=== PATIENT | male | born 1960 | race Caucasian/White ===

== ENCOUNTER → 2019-12-27 | Outpatient (CLI) | payer BC ==
[~2019-12-27] MED LIST: CYCL-707; GABA-843; LISI10TA4 PO; OMEP-221; PRAV40TA2
== END ==
LOC: M LABSMTC 08:19
PROVIDERS: ATTEND Anesthesiology
DX: Z01.812 Encounter for preprocedural laboratory examination (principal); Z20.828 Contact with and (suspected) exposure to other viral communicable diseases

== ENCOUNTER 2020-01-01 08:45 | Day surgery (SDC) | payer BC ==
[~2020-01-01] VITALS: Ht 170.2 cm; Wt 94.8 kg
[~2020-01-01 08:45] MED LIST changes: +NS 1,000 ML IV ONE; +propofoL 200 MG/20 ML VIAL As Ordered ONE
[2020-01-01] MEDS ORDERED: propofoL 200 MG/20 ML VIAL As Ordered ONE (10:17)
[2020-01-01] MEDS ORDERED: fentaNYL 100 MCG/2 ML INJECTION (J3010) As Ordered ONE (10:21)
[2020-01-01] MEDS ORDERED: SIMETHICONE 40MG/0.6ML DROPS 30ML As Ordered ONE (10:29)
--- NOTE | 2020-01-01 10:29 | ROOR ---
Patient Name: Janice Bee Procedure Date: 01/01/2020 10:04 AM Date of : 1960 Age: 59 Room: [facility] Gender: Male Note Status: Finalized Procedure: Colonoscopy Indications: High risk colon cancer surveillance: Personal history of colonic polyps, Family history of colon cancer in a first-degree relative before age 60 years Providers: Denton Parkinson Jr, MD Referring MD: JORGE A EVANS DO Requesting Provider: Medicines: Propofol per Anesthesia Complications: No immediate complications. Procedure: Pre-Anesthesia Assessment: - Prior to the procedure, a History and Physical was performed, and patient medications and allergies were reviewed. The patient is competent. The risks and benefits of the procedure and the sedation options and risks were discussed with the patient. All questions were answered and informed consent was obtained. Patient identification and proposed procedure were verified by the physician and the nurse in the pre-procedure area and in the procedure room. Mental Status Examination: alert and oriented. Airway Examination: normal oropharyngeal airway and neck mobility. Respiratory Examination: clear to auscultation. CV Examination: normal. ASA Grade Assessment: II - A patient with mild systemic disease. After reviewing the risks and benefits, the patient was deemed in satisfactory condition to undergo the procedure. The anesthesia plan was to use moderate sedation / analgesia (conscious sedation). Immediately prior to administration of medications, the patient was re-assessed for adequacy to receive sedatives. The heart rate, respiratory rate, oxygen saturations, blood pressure, adequacy of pulmonary ventilation, and response to care were monitored throughout the procedure. The physical status of the patient was re-assessed after the procedure. The Colonoscope was introduced through the anus and advanced to the cecum, identified by appendiceal orifice and ileocecal valve. The colonoscopy was performed without difficulty. The patient tolerated the procedure well. The quality of the bowel preparation was adequate. Findings: The sigmoid colon, descending colon, cecum, appendiceal orifice and ileocecal valve appeared normal. Five polyps were found in the rectum, recto-sigmoid colon, transverse colon and ascending colon. The polyps were small in size. These polyps were removed with a hot snare. Resection was complete, but the polyp tissue was only partially retrieved. Impression: - The sigmoid colon, descending colon, cecum, appendiceal orifice and ileocecal valve are normal. - Five small polyps in the rectum, at the recto-sigmoid colon, in the transverse colon and in the ascending colon, removed with a hot snare. Complete resection. Partial retrieval. Recommendation: - Repeat colonoscopy in 5 years for surveillance. Procedure Code(s): --- Professional --- 00231, Colonoscopy, flexible; with removal of tumor(s), polyp(s), or other lesion(s) by snare technique Diagnosis Code(s): --- Professional --- Z86.010, Personal history of colonic polyps K62.1, Rectal polyp K63.5, Polyp of colon Z80.0, Family history of malignant neoplasm of digestive organs CPT copyright 2019 [employer]. All rights reserved. The codes documented in this report are preliminary and upon skip operator review may be revised to meet current compliance requirements. Denton Parkinson MD Denton Parkinson Jr, MD 01/01/2020 10:28:57 AM Electronically signed by Denton Parkinson Jr, MD Number of Addenda: 0 Note Initiated On: 01/01/2020 10:04 AM Estimated Blood Loss: Estimated blood loss: none.
[2020-01-01 10:58] VITALS: BP 118/67
== END 2020-01-01 11:00 | disposition home or self-care (01) ==
LOC: M OPP 08:45
PROVIDERS: ATTEND Surgery
DX: R19.4 Change in bowel habit (principal); Z86.010 Personal history of colon polyps; Z80.0 Family history of malignant neoplasm of digestive organs; K63.5 Polyp of colon; I10 Essential (primary) hypertension; G47.30 Sleep apnea, unspecified; F17.210 Nicotine dependence, cigarettes, uncomplicated; Z79.899 Other long term (current) drug therapy
CPT/HCPCS: 45385; 88305; J3010

== ENCOUNTER → 2021-04-14 | Outpatient (REF) | payer BC ==
[~2021-04-14] MED LIST changes: +GABA-282; -GABA-843; +LISI10TA22 PO; -LISI10TA4 PO; -NS 1,000 ML IV ONE; -OMEP-221; +OMEP40CA5; -propofoL 200 MG/20 ML VIAL As Ordered ONE
[2021-04-14 14:49] LABS: TOTAL PROTEIN 7.2 GM/DL (6.4-8.2)
== END ==
LOC: M LAB REF 13:03
PROVIDERS: ATTEND Internal Medicine Nephrology
DX: N18.31 Chronic kidney disease, stage 3a (principal)

== ENCOUNTER → 2024-12-08 | Outpatient (REF) | payer OTHER ==
[~2024-12-08] MED LIST changes: +GABA-1172; -GABA-282; -PRAV40TA2; +PRAV40TA85
== END ==
LOC: M SFHCDERM 17:41
PROVIDERS: ATTEND Physician Assistant
DX: L72.0 Epidermal cyst (principal)